=== PATIENT | male | born 1955 | race Caucasian/White ===

== ENCOUNTER 2019-01-29 08:55 | Day surgery (SDC) | payer MEDICAID ==
[~2019-01-29] VITALS: Ht 165.1 cm; Wt 77.1 kg
[2019-01-29] MEDS ORDERED: fentaNYL 0.05 MG/ML VIAL ONE (10:56)
[2019-01-29] MEDS ORDERED: LIDOCAINE 2% 100 MG/5 ML UJET TP ONE (10:57)
[2019-01-29] MEDS ORDERED: MIDAZOLAM 2 MG/2 ML VIAL ONE (10:57)
[2019-01-29] MEDS ORDERED: MIDAZOLAM 2 MG/2 ML VIAL IVP ONE (12:50)
[2019-01-29] MEDS ORDERED: fentaNYL 0.05 MG/ML VIAL IVP ONE (12:50)
== END 2019-01-29 12:25 | disposition home or self-care (01) ==
LOC: MOR 08:55 → MMU 08:55 → MOR 12:25
PROVIDERS: ATTEND Internal Medicine Gastroenterology
DX: D64.9 Anemia, unspecified (principal); D12.0 Benign neoplasm of cecum; D12.2 Benign neoplasm of ascending colon; K57.30 Diverticulosis of large intestine without perforation or abscess without bleeding; K64.8 Other hemorrhoids; F17.200 Nicotine dependence, unspecified, uncomplicated; Z79.899 Other long term (current) drug therapy; Z90.49 Acquired absence of other specified parts of digestive tract
CPT/HCPCS: 36415; 43239; 45385; 86677; J2250; J3010

== ENCOUNTER 2019-02-25 06:09 | Day surgery (SDC) | payer MEDICAID ==
[~2019-02-25] VITALS: Ht 167.6 cm; Wt 79.4 kg
[2019-02-25] MEDS ORDERED: fentaNYL 0.05 MG/ML VIAL ONE (07:08)
[2019-02-25] MEDS ORDERED: MIDAZOLAM 2 MG/2 ML VIAL ONE (07:09)
[2019-02-25] MEDS ORDERED: MIDAZOLAM 2 MG/2 ML VIAL IVP ONE (08:55)
== END 2019-02-25 08:50 | disposition home or self-care (01) ==
LOC: MDS 06:09 → MMU 06:19 → MDS 08:50
PROVIDERS: ATTEND Internal Medicine Gastroenterology
DX: D64.9 Anemia, unspecified (principal); K25.9 Gastric ulcer, unspecified as acute or chronic, without hemorrhage or perforation; C49.A2 Gastrointestinal stromal tumor of stomach; F17.210 Nicotine dependence, cigarettes, uncomplicated; Z90.49 Acquired absence of other specified parts of digestive tract; Z88.8 Allergy status to other drugs, medicaments and biological substances; Z79.899 Other long term (current) drug therapy
CPT/HCPCS: 43239; 88305; 88313; 88342; J2250; J3010

== ENCOUNTER 2020-08-25 07:05 | Day surgery (SDC) | payer OTHER, SELFPAY ==
[~2020-08-25] VITALS: Ht 165.1 cm; Wt 79.4 kg
[2020-08-25] MEDS ORDERED: fentaNYL citrate 0.05 MG/ML VIAL ONE (11:14)
[2020-08-25] MEDS ORDERED: MIDAZOLAM 2 MG/2 ML VIAL ONE ×2 (11:15)
[2020-08-25] MEDS ORDERED: MIDAZOLAM 5 MG/5 ML VIAL ONE (11:34)
[2020-08-25] MEDS ORDERED: MIDAZOLAM 2 MG/2 ML VIAL IVP ONE (11:55)
== END 2020-08-25 12:39 | disposition home or self-care (01) ==
LOC: MDS 07:05 → MMU 07:06 → MDS 12:39
PROVIDERS: ATTEND Internal Medicine Gastroenterology
DX: C49.A2 Gastrointestinal stromal tumor of stomach (principal); F17.210 Nicotine dependence, cigarettes, uncomplicated; Z88.8 Allergy status to other drugs, medicaments and biological substances; Z79.899 Other long term (current) drug therapy; Z20.828 Contact with and (suspected) exposure to other viral communicable diseases
CPT/HCPCS: 43239; J2250; U0003; J3010